=== PATIENT | female | born 1990 | race Caucasian/White ===

== ENCOUNTER → 2017-05-05 23:02 | Outpatient (CLI) | payer BC, SELFPAY ==
[2017-05-09 14:15] LABS: HPV Reflexed? NOT INDICATED
== END ==
PROVIDERS: Visit Provider Obstetrics & Gynecology
DX: Z01.419 Encounter for gynecological examination (general) (routine) without abnormal findings (principal); Z12.4 Encounter for screening for malignant neoplasm of cervix
CPT/HCPCS: 88175; G0145

== ENCOUNTER → 2020-05-18 14:58 | Outpatient (CLI) | payer MEDICAID, SELFPAY ==
[2020-05-18 16:05] LABS: Hemoglobin 12.4 g/dL (12.0-15.0); Mean Corpuscular Volume 83.9 fL (81-99); Mean Platelet Vol. 10.4 fl (6.2-12.0); Platelet Count 340 K/mm3 (150-450); RBC Distribution Width CV 13.1 % (11.6-14.6); RBC Distribution Width SD 40.2 fl (35.1-43.9); Red Blood Count 4.77 M/mm3 (4.2-5.4); White Blood Count 9.6 K/mm3 (4.4-11.0)
[2020-05-18 16:23] LABS: Hemoglobin A1c 5.3 % (3.8-5.6)
[2020-05-18 16:47] LABS: Anion Gap 6 (5-15); BUN 14 mg/dL (7-18); BUN/Creat Ratio 8.6 RATIO (10-20); Calcium,Total 9.2 mg/dL (8.5-10.1); Chloride 103 mmol/L (98-107); Creatinine, Serum 1.62 mg/dL (0.55-1.02); EST Glomerular Filtration Rate 40 mL/min (>60); Est Glom Filt Rate - Afr Amer 49 mL/min (>60); Glucose 80 mg/dL (74-106); Luteinizing Hormone 9.8 mIU/mL; Potassium 3.8 mmol/L (3.5-5.1); Prolactin 14.2 ng/mL; Sodium Level 138 mmol/L (136-145); T4 Free Direct 0.99 ng/dL (0.76-1.46); Thyroid Stim Hormone (TSH) 0.75 uIU/mL (0.358-3.74)
[2020-05-28 14:17] LABS: 17-Hydroxyprogesterone 33 ng/dL (.)
== END ==
PROVIDERS: Visit Provider Obstetrics & Gynecology
DX: E28.2 Polycystic ovarian syndrome (principal)
CPT/HCPCS: 36415; 80048; 82627; 83001; 83002; 83036; 83498; 84146; 84402; 84439; 84443; 85027; 82626